=== PATIENT | male | born 1970 | race African-American/Black ===

== ENCOUNTER 2017-10-31 21:00 | Emergency (ER) | payer OTHER ==
[2017-10-31] MEDS ORDERED: Ketorolac Tromethamine 30 MG/ML VIAL ONE (21:47)
[2017-10-31] MEDS ORDERED: Metoclopramide HCl 10 MG/2 ML VIAL ONE (21:47)
[2017-10-31] MEDS ORDERED: methylPREDNISolone Sod Succ/PF 125 MG/2 ML VIAL ONE (21:47)
[2017-10-31] MEDS ORDERED: diphenhydrAMINE 50 MG/ML VIAL ONE (21:47)
== END 2017-11-01 00:01 | disposition home or self-care (01) ==
LOC: SCSER 21:00
DX: R51 Headache (principal); E11.9 Type 2 diabetes mellitus without complications
CPT/HCPCS: 96365; 96366; 96375; J1200; J1885; J2765; J2930

== ENCOUNTER 2022-08-13 07:22 | Emergency (ER) | payer OTHER ==
[2022-08-13] MEDS ORDERED: Metoclopramide HCl 10 MG/2 ML VIAL ONE (08:48)
[2022-08-13] MEDS ORDERED: diphenhydrAMINE 50 MG/ML VIAL ONE (08:48)
[2022-08-13] MEDS ORDERED: Acetaminophen 500 MG TAB ONE (08:48)
[2022-08-13] MEDS ORDERED: Ketorolac Tromethamine 30 MG/ML VIAL ONE (08:48)
[2022-08-13 08:56] LABS: #Lymphocytes 1.4 thou/uL (1.20-3.40); #Monocytes 0.4 thou/uL (0.11-0.59); %Basophils 0.2 % (0.0-1.0); %Eosinophils 0.4 % (0.0-10.0); %Lymphocytes 17.4 % (21.0-51.0); %Monocytes 4.9 % (0.0-10.0); %Neutrophils 77.2 % (42.0-75.0); Hemoglobin 14.8 g/dL (14.0-18.0); Mean Corpuscular HGB CONC 29.5 g/dL (32.0-36.0); Mean Corpuscular Hemoglobin 27.9 pg (27.0-31.0); Mean Corpuscular Volume 94.4 fl (78.0-98.0); Mean Platelet Volume 6.6 fL (7.4-10.4); Platelet Count 247 10x3/uL (130-400); RBC Distribution Width 13.6 % (11.5-14.5); White Blood Cell (WBC) Count 7.7 10x3/uL (4.8-10.8)
[2022-08-13 09:01] LABS: SARS-CoV-2 NAA Rapid Test Not Detected (NotDetected)
[2022-08-13 09:10] LABS: ALT (SGPT) 16 U/L (8-55); AST (SGOT) 15 U/L (5-34); Albumin 3.8 g/dL (3.5-5.0); Alkaline Phosphatase 42 U/L (40-110); Anion Gap 11 mmol/L (10-20); BUN (Urea Nitrogen) 13 mg/dL (8.4-25.7); Bilirubin, Total 0.6 mg/dL (0.2-1.2); Calc. Creatinine Clearance 0 mL/min (70-130); Carbon Dioxide 28 mmol/L (22-29); Chloride 104 mmol/L (98-107); Estimated GFR 73; Globulin 3.1 g/dL (2.4-3.5); Glucose 110 mg/dL (70-105); Protein, Total 6.9 g/dL (6.0-8.3); Sodium 139 mmol/L (136-145)
[2022-08-13 09:18] LABS: Hypochromia SLIGHT = 6-15 cells (100X) (0-5/hpf); MDiff Complete? YES; Platelet Morphology Comment Appears Adequate; Stomatocytes SLIGHT = 2-5 cells (100X) (0-1/hpf); Target Cells SLIGHT = 2-5 cells (100X) (0-1/hpf)
== END 2022-08-13 11:39 | disposition home or self-care (01) ==
LOC: ERS 07:22
DX: A87.9 Viral meningitis, unspecified (principal); E11.9 Type 2 diabetes mellitus without complications; Z20.822 Contact with and (suspected) exposure to COVID-19
CPT/HCPCS: 36415; 70450; 80053; 85025; 87040; 96365; 96375; J1200; J1885; J2765

== ENCOUNTER 2023-02-15 11:42 | Inpatient (IN) | payer OTHER ==
[2023-02-15 12:27] LABS: #Monocytes 0.3 thou/uL (0.11-0.59); %Basophils 0.3 % (0.0-1.0); %Lymphocytes 13.9 % (21.0-51.0); %Monocytes 3.4 % (0.0-10.0); %Neutrophils 82.1 % (42.0-75.0); Hematocrit 45.7 % (42.0-52.0); Hemoglobin 15.2 g/dL (14.0-18.0); Mean Corpuscular HGB CONC 33.3 g/dL (32.0-36.0); Mean Corpuscular Hemoglobin 29.5 pg (27.0-31.0); Mean Corpuscular Volume 88.7 fl (78.0-98.0); Mean Platelet Volume 9.2 fL (7.4-10.4); Platelet Count 280 10x3/uL (130-400); RBC Distribution Width 13.9 % (11.5-14.5); Red Blood Cell (RBC) Count 5.15 mill/uL (4.70-6.10); White Blood Cell (WBC) Count 7.3 10x3/uL (4.8-10.8)
[2023-02-15 12:54] LABS: ALT (SGPT) 15 U/L (8-55); AST (SGOT) 14 U/L (5-34); Albumin 4.6 g/dL (3.5-5.0); Alkaline Phosphatase 43 U/L (40-110); Anion Gap 14 mmol/L (10-20); BUN (Urea Nitrogen) 8 mg/dL (8.4-25.7); Bilirubin, Total 0.5 mg/dL (0.2-1.2); Calc. Creatinine Clearance 0 mL/min (70-130); Calcium 9.4 mg/dL (7.8-10.44); Carbon Dioxide 25 mmol/L (22-29); Chloride 103 mmol/L (98-107); Estimated GFR 77; Glucose 101 mg/dL (70-105); Potassium 4.2 mmol/L (3.5-5.1); Protein, Total 7.6 g/dL (6.0-8.3); Sodium 138 mmol/L (136-145)
[2023-02-15] MEDS ORDERED: Metoclopramide HCl 10 MG/2 ML VIAL ONE (13:26)
[2023-02-15] MEDS ORDERED: Ketorolac Tromethamine 30 MG/ML VIAL ONE (13:26)
[2023-02-15] MEDS ORDERED: Ondansetron PF 4 MG/2 ML Vial ONE (13:26)
[2023-02-15] MEDS ORDERED: diphenhydrAMINE 50 MG/ML VIAL ONE (13:26)
[2023-02-15] MEDS ORDERED: Midazolam HCl 2 mg/2 ml Vial ONE (14:51)
[2023-02-15] MEDS ORDERED: Lidocaine 2% PF 5 ML VIAL ONE (15:16)
[2023-02-15 16:09] LABS: CSF, Glucose 33 mg/dl (40-70)
[2023-02-15 16:11] LABS: CSF Source CSF; Clarity Clear (Clear); Tube # 1; Tube # 4
[2023-02-15 16:29] LABS: Cell Count Non Hematic 24 %; Eosinophils 2 %; Lymphocytes 48 %
[2023-02-15 16:33] LABS: Cell Count Non Hematic 20 %; Eosinophils 1 %; Lymphocytes 46 %
[2023-02-15 16:46] LABS: CSF, Protein 340 mg/dL (15-40)
[2023-02-15 16:53] LABS: Color Of CSF Supernatant COLORLESS (Colorless); Tube # 2; Unspun CSF Color COLORLESS (Colorless)
[2023-02-15] MEDS ORDERED: Ondansetron ODT 4 MG TAB PO PRN (17:13)
[2023-02-15] MEDS ORDERED: ACYCLOVIR SODIUM IVPB SCH (17:15)
[2023-02-15] MEDS ORDERED: SODIUM CHLORIDE 0.9% IVPB SCH (17:15)
[2023-02-15 19:15] LABS: Segmented Neutrophils 21 %; Segmented Neutrophils 26 %
[2023-02-15 19:55] VITALS: BMI 41.8
[2023-02-15] MEDS: Acetaminophen 325 MG TAB PO PRN (20:53)
[2023-02-15] MEDS ORDERED: Vancomycin HCl 2.5 GM in Sodium Chloride 0.9% 500 ML IVPB SCH (21:15)
[2023-02-15] MEDS: cefTRIAXone\\ROCEPHIN 2 GM in Sodium Chloride 0.9% 100 ML IVPB SCH (22:34)
[2023-02-16] MEDS: ACYCLOVIR SODIUM IVPB SCH ×3 (02:12→17:34)
[2023-02-16] MEDS: SODIUM CHLORIDE 0.9% IVPB SCH ×3 (02:12→17:34)
[2023-02-16] MEDS: Acetaminophen 325 MG TAB PO PRN ×4 (02:19→18:53)
[2023-02-16 05:41] LABS: #Monocytes 0.8 thou/uL (0.11-0.59); #Neutrophils 4.4 thou/uL (1.40-6.50); %Basophils 0.5 % (0.0-1.0); %Eosinophils 0.1 % (0.0-10.0); %Monocytes 10.9 % (0.0-10.0); %Neutrophils 57.2 % (42.0-75.0); Hematocrit 39.8 % (42.0-52.0); Hemoglobin 13.3 g/dL (14.0-18.0); Mean Corpuscular HGB CONC 33.4 g/dL (32.0-36.0); Mean Corpuscular Hemoglobin 29.6 pg (27.0-31.0); Mean Corpuscular Volume 88.4 fl (78.0-98.0); Platelet Count 224 10x3/uL (130-400); RBC Distribution Width 13.9 % (11.5-14.5); White Blood Cell (WBC) Count 7.7 10x3/uL (4.8-10.8)
[2023-02-16 06:04] LABS: ALT (SGPT) 11 U/L (8-55); AST (SGOT) 10 U/L (5-34); Albumin 3.7 g/dL (3.5-5.0); Alkaline Phosphatase 33 U/L (40-110); Anion Gap 10 mmol/L (10-20); BUN (Urea Nitrogen) 9 mg/dL (8.4-25.7); Bilirubin, Total 0.5 mg/dL (0.2-1.2); Calc. Creatinine Clearance 144 mL/min (70-130); Calcium 8.3 mg/dL (7.8-10.44); Carbon Dioxide 26 mmol/L (22-29); Chloride 107 mmol/L (98-107); Estimated GFR 95; Globulin 2.5 g/dL (2.4-3.5); Glucose 108 mg/dL (70-105); Potassium 3.7 mmol/L (3.5-5.1); Protein, Total 6.2 g/dL (6.0-8.3); Sodium 139 mmol/L (136-145)
[2023-02-16] MEDS ORDERED: Sodium Chloride 0.9% 100 ML ONE (07:52)
[2023-02-16] MEDS: cefTRIAXone\\ROCEPHIN 2 GM in Sodium Chloride 0.9% 100 ML IVPB SCH ×2 (08:07→20:54)
[2023-02-16] MEDS ORDERED: Ketorolac Tromethamine 30 MG/ML VIAL IVP SCH (09:00)
[2023-02-16] MEDS: VANCOMYCIN 1.75 GM/500 ML BAG 1.75 GM in Premix Bag 1 BAG IVPB SCH ×3 (11:55→22:54)
[2023-02-16] MEDS ORDERED: Ketorolac Tromethamine 30 MG/ML VIAL IVP PRN (18:44)
[2023-02-17] MEDS: ACYCLOVIR SODIUM IVPB SCH ×2 (02:29→11:16)
[2023-02-17] MEDS: SODIUM CHLORIDE 0.9% IVPB SCH ×2 (02:29→11:16)
[2023-02-17] MEDS: Acetaminophen 325 MG TAB PO PRN (08:26)
[2023-02-17] MEDS ORDERED: Ibuprofen 600 MG TAB PO PRN (09:51)
[2023-02-17] MEDS ORDERED: traMADol HCl 50 MG TAB PO PRN (09:51)
[2023-02-17 10:12] LABS: Anion Gap 12 mmol/L (10-20); BUN (Urea Nitrogen) 8 mg/dL (8.4-25.7); Calc. Creatinine Clearance 145 mL/min (70-130); Calcium 8.3 mg/dL (7.8-10.44); Carbon Dioxide 23 mmol/L (22-29); Chloride 109 mmol/L (98-107); Estimated GFR 96; Glucose 99 mg/dL (70-105); Potassium 4.1 mmol/L (3.5-5.1); Sodium 140 mmol/L (136-145)
[2023-02-17 11:44] VITALS: BP 134/82; TEMP 98.5
== END 2023-02-17 14:28 | disposition home or self-care (01) | DRG 76 ==
LOC: ERS 11:42 → T4-B 17:44
PROVIDERS: ADMIT Family Medicine; ATTEND Internal Medicine
PROC: 00JU3ZZ Inspection of Spinal Canal, Percutaneous Approach (ICD-10-PCS; principal; 2023-02-15)
DX: A87.9 Viral meningitis, unspecified (principal); I10 Essential (primary) hypertension; E78.5 Hyperlipidemia, unspecified; Z79.899 Other long term (current) drug therapy; Z98.890 Other specified postprocedural states
CPT/HCPCS: 36415; 62270; 70450; 80048; 80053; 80202; 82945; 83605; 84145; 84157; 85025; 85060; 87040; 87070; 87205; 87529; 89051; 96365; 96375; J0133; J0696; J1200; J1885; J2001; J2250; J2405; J2765; J3370; J3490; J7030